=== PATIENT | female | born 1970 | race Caucasian/White ===

== ENCOUNTER 2024-09-09 10:52 | Emergency (ER) | payer BC ==
[~2024-09-09 10:52] MED LIST: Amiodarone 150 MG/3 ML SDV ONE; EPINEPHrine 1:10,000 1 MG/10 ML Syringe ONE; Sodium Chloride 0.9% 1,000 ML IV ONE
== END 2024-09-09 10:59 | disposition expired ==
LOC: VM.ED 10:52
DX: I46.9 Cardiac arrest, cause unspecified (principal)
CPT/HCPCS: 31500; 92950; 92960; 96374; 99285; J0282; J7030; J0171